=== PATIENT | female | born 1990 | race Caucasian/White ===

== ENCOUNTER → 2019-06-06 | Outpatient (CLI) | payer OTHER ==
--- NOTE | 2019-06-06 14:02 | RAD ---
CT HEAD WO CONTRAST Indication: Headache after closed head injury today. Exposure: One or more of the following individualized dose reduction techniques were utilized for this examination: 1. Automated exposure control 2. Adjustment of the mA and/or kV according to patient size 3. Use of iterative reconstruction technique. Technique: Standard imaging without intravenous contrast. Comparison: None FINDINGS: No evidence of acute intracranial hemorrhage, mass effect, midline shift or abnormal extra-axial fluid collection. Sen-white matter distinction is intact. Visualized orbits unremarkable. No significant scalp hematoma. Visualized sinuses are clear. Mastoids and auditory canals appear grossly clear. No acute skull abnormality. IMPRESSION: No evidence of acute intracranial hemorrhage. Electronically signed by: Sachin Hinds MD (06/06/2019 1:59 PM) [id number]
== END | disposition home or self-care (01) ==
LOC: CT 13:13
PROVIDERS: ATTEND Preventive Medicine Occupational Medicine
DX: S09.90XA Unspecified injury of head, initial encounter (principal); X58.XXXA Exposure to other specified factors, initial encounter; Y93.89 Activity, other specified; Y92.89 Other specified places as the place of occurrence of the external cause; Y99.8 Other external cause status
CPT/HCPCS: 70450